=== PATIENT | male | born 1965 | race African-American/Black ===

== ENCOUNTER 2019-12-09 19:54 | Emergency (ER) | payer MEDICAID ==
[~2019-12-09] VITALS: Ht 160 cm; Wt 69.0 kg
[2019-12-10] MEDS ORDERED: ONDANSETRON HCL 4MG/2ML INJ IV STA (01:33)
[2019-12-10] MEDS ORDERED: MORPHINE SULFATE 4 MG/ML CPJ (NOT FOR IM USE) IV STA (01:33)
[2019-12-10] MEDS ORDERED: SODIUM CHLORIDE 0.9% 1,000 ML IV ONE ×2 (01:33→05:13)
[2019-12-10 01:42] LABS: CLARITY URINE CLEAR (CLEAR); COLOR URINE YELLOW (YELLOW); HEMATOCRIT. 30.2 % (42.0-52.0); HEMOGLOBIN. 8.8 g/dL (14.0-18.0); KETONES URINE 1+ (NEGATIVE); LEUKOCYTE ESTERASE URINE NEGATIVE (NEGATIVE); MEAN CORPUSCULAR HEMOGLOBIN 15.6 pg (28.0-32.0); MEAN CORPUSCULAR VOLUME 53.9 fL (80.0-94.0); MEAN PLATELET VOLUME 8.6 fl (7.4-10.4); NITRITE URINE NEGATIVE (NEGATIVE); OCCULT BLOOD URINE 1+ (NEGATIVE); PLATELET 308 x1000/uL (130-400); PROTEIN URINE NEGATIVE (NEGATIVE); RED BLOOD CELL COUNT 5.61 mill/uL (4.7-6.1); RED CELL DISTRIBUTION WIDTH 19.9 % (11.6-14.6); SPECIFIC GRAVITY URINE 1.011 (1.005-1.030); UROBILINOGEN URINE 0.2 E.U./dL (0.2-1.0)
[2019-12-10 01:45] LABS: CHLORIDE 104 mEq/L (98-107)
[2019-12-10] MEDS ORDERED: MORPHINE SULFATE 2 MG/ML CPJ (NOT FOR IM USE) IV ONE (03:45)
[2019-12-10] MEDS ORDERED: KETOROLAC 30MG/ML VIAL IV ONE (06:15)
[2019-12-10 06:27] LABS: PLATELET ESTIMATE NORMAL
[2019-12-10 07:06] VITALS: BP 121/69
== END 2019-12-10 07:10 | disposition home or self-care (01) ==
LOC: ER 19:54
DX: N13.2 Hydronephrosis with renal and ureteral calculous obstruction (principal); R11.2 Nausea with vomiting, unspecified; Z90.49 Acquired absence of other specified parts of digestive tract
CPT/HCPCS: 36415; 74176; 80053; 81003; 83690; 85025; 96361; 96374; 96375; 96376; 99285; J1885; J2270; J2405; J7030